=== PATIENT | female | born 1950 | race Caucasian/White ===

== ENCOUNTER 2016-09-09 13:49 | Inpatient (IN) | payer SELFPAY ==
[~2016-09-09] VITALS: Ht 160 cm; Wt 172.4 kg
[~2016-09-09 13:49] MED LIST: ALBUTEROL 3 ML 33 ML IH; AMITRIPTYLINE25 MG PO; BACTRIM DS 8001 TAB PO; CIPRO500 MG PO; CIPROFLOXACIN500 MG PO; COUMADIN3 M1 PO; DARVOCET N 1001 TAB PO; FLOMAX0.4 MG PO; GAVISCON ES TA1 EACH PO; GLYBURIDE5 MG PO; HYDROCODONE BIT1 T11 PO; LOVASTATIN20 MG PO; MACROBID100 M1 PO; MEDROL DOSEPAK4 MG PO; METOPROLOL50 MG PO; MOTRIN800 MG PO; MYSOLINE50 M1 PO; MYSOLINE50 M2 PO; Metformin Hydr500 MG PO; NEURONTIN300 MG PO; NOVOLIN N100 U/ML SC; PEPCID20 MG PO; PERCOCET 325 MG1 TA2 PO; PERCOCET 325 MG1 TA7 PO; PYRIDIUM100 MG PO; Phenergan25 MG PO; VIBRAMYCIN100 MG PO; VICODIN 5/500 505 MG PO; VITAMIN D50000 I2 PO; WARFARIN SODIUM6 MG PO; XANAX0.5 MG PO; ZANTAC150 MG PO; ZOFRAN4 MG PO; Zofran4 MG PO
[2016-09-09 14:22] LABS: INTERNATIONAL NORM RATIO 1.6 (2.0-3.5); PROTHROMBIN TIME 17.4 SECONDS (9.0-12.4)
[2016-09-09 14:30] VITALS: BP 174/107
[2016-09-09 14:31] LABS: ALBUMIN 3.5 gm/dl (3.1-4.5); ALKALINE PHOSPHATASE 62 U/L (45-117); BILIRUBIN, TOTAL 0.7 mg/dl (0.2-1.0); BUN 11 mg/dl (7-24); CARBON DIOXIDE 29 mmol/L (21-32); CHLORIDE 101 mmol/L (98-107); EST GLOM FILT AFRICAN AMERICAN > 60 ml/min; GLUCOSE 246 mg/dL (65-99); MAGNESIUM 1.3 mg/dL (1.5-2.1); POTASSIUM 4.3 mmol/L (3.5-5.1); SGOT/AST 18 IU/L (3-35); SGPT/ALT 18 U/L (12-78); SODIUM 138 mmol/L (136-145); TOTAL PROTEIN 7.6 gm/dL (6.4-8.2)
[2016-09-09 14:34] LABS: TROPONIN I < 0.015 ng/ml (<0.045)
[2016-09-09 14:46] LABS: BASO # 0.1 10*3/uL (0.0-0.1); BASO % 0.9 % (0.0-1.0); EOS # 0.3 10*3/uL (0.0-0.4); EOS % 4.6 % (1.0-4.0); HEMATOCRIT 39.3 % (37.0-47.0); HEMOGLOBIN 12.4 g/dl (12.0-16.0); LYMPH # 2.6 10*3/uL (1.3-4.4); MEAN CELL VOLUME 91.8 fl (81.0-99.0); MEAN CORPUSCULAR HGB CONC 31.6 g/dl (33.0-37.0); MEAN PLATELET VOLUME 10.6 fl (9.6-12.3); MONO # 0.4 10*3/uL (0.1-1.0); MONO % 5.3 % (3.0-9.0); NEUT # 3.7 10*3/uL (2.3-7.9); NEUT % 52.1 % (47.0-73.0); PLATELET COUNT AUTOMATED 151 10*3/uL (130-400); RED BLOOD COUNT 4.28 10*6/uL (4.10-5.10); RED CELL DISTRI WIDTH 13.5 % (0-14.5)
[2016-09-09 16:11] VITALS: BP 188/89
[2016-09-09 16:48] VITALS: BP 171/91
[2016-09-09 18:00] VITALS: BP 159/79
[2016-09-09] MEDS ORDERED: WARFARIN SODIUM3 MG PO (18:43)
[2016-09-09] MEDS ORDERED: WARFARIN SODIUM6 MG PO (18:44)
[2016-09-09] MEDS ORDERED: DOXYCYCLINE100 M3 PO (18:45)
[2016-09-09] MEDS ORDERED: LISINOPRIL5 MG PO (18:46)
[2016-09-09] MEDS ORDERED: ZANTAC 150150 MG PO (18:47)
[2016-09-09 20:00] VITALS: BP 139/78
[2016-09-10] VITALS: BP 156/82
[2016-09-10 06:30] LABS: BASO % 0.6 % (0.0-1.0); EOS # 0.2 10*3/uL (0.0-0.4); EOS % 3.5 % (1.0-4.0); HEMATOCRIT 40.1 % (37.0-47.0); HEMOGLOBIN 12.9 g/dl (12.0-16.0); LYMPH % 32.1 % (27.0-41.0); MEAN CELL VOLUME 92.2 fl (81.0-99.0); MEAN CORPUSCULAR HGB 29.7 pg (27.0-31.0); MEAN CORPUSCULAR HGB CONC 32.2 g/dl (33.0-37.0); MEAN PLATELET VOLUME 10.3 fl (9.6-12.3); MONO # 0.4 10*3/uL (0.1-1.0); MONO % 6.3 % (3.0-9.0); NEUT # 3.6 10*3/uL (2.3-7.9); NEUT % 57.2 % (47.0-73.0); PLATELET COUNT AUTOMATED 155 10*3/uL (130-400); RED BLOOD COUNT 4.35 10*6/uL (4.10-5.10); RED CELL DISTRI WIDTH 13.3 % (0-14.5); WHITE BLOOD COUNT 6.3 10*3/uL (4.8-10.8)
[2016-09-10 07:05] LABS: INTERNATIONAL NORM RATIO 1.7 (2.0-3.5); PROTHROMBIN TIME 19.2 SECONDS (9.0-12.4)
[2016-09-10 07:07] LABS: BUN 14 mg/dl (7-24); CARBON DIOXIDE 32 mmol/L (21-32); CHLORIDE 100 mmol/L (98-107); EST GLOM FILT AFRICAN AMERICAN > 60 ml/min; GLUCOSE 204 mg/dL (65-99); POTASSIUM 3.8 mmol/L (3.5-5.1); SODIUM 138 mmol/L (136-145)
[2016-09-10 08:00] VITALS: BP 153/64
== END 2016-09-10 10:35 | disposition left against medical advice (07) | DRG 313 ==
LOC: ED 13:49 → 5E 16:25 → EDHOLD 16:25 → 5E 16:26
PROVIDERS: Internal Medicine
DX: R07.89 Other chest pain (principal); I10 Essential (primary) hypertension; L03.032 Cellulitis of left toe; E11.9 Type 2 diabetes mellitus without complications; Z86.718 Personal history of other venous thrombosis and embolism; Z53.21 Procedure and treatment not carried out due to patient leaving prior to being seen by health care provider; Z87.442 Personal history of urinary calculi; Z82.49 Family history of ischemic heart disease and other diseases of the circulatory system; Z83.3 Family history of diabetes mellitus; Z88.2 Allergy status to sulfonamides; Z91.040 Latex allergy status; Z88.6 Allergy status to analgesic agent; Z88.8 Allergy status to other drugs, medicaments and biological substances; Z91.048 Other nonmedicinal substance allergy status; Z87.440 Personal history of urinary (tract) infections; Z79.4 Long term (current) use of insulin; Z79.01 Long term (current) use of anticoagulants; Z79.899 Other long term (current) drug therapy; Z90.710 Acquired absence of both cervix and uterus; Z90.49 Acquired absence of other specified parts of digestive tract

== ENCOUNTER 2019-09-24 13:47 | Emergency (ER) | payer MEDICARE ==
[~2019-09-24 13:47] MED LIST changes: +DOXYCYCLINE100 M3 PO; +LISINOPRIL5 MG PO; +LOSARTAN POTASS50 M1 PO; +SINEMET 10-1001 EACH PO; +WARFARIN SODIUM3 MG PO; +ZANTAC 150150 MG PO
[2019-09-24 13:54] VITALS: BP 133/59
[2019-09-24 14:29] LABS: BASO % 0.3 % (0.0-1.0); EOS # 0.2 10*3/uL (0.0-0.4); EOS % 3.7 % (1.0-4.0); HEMATOCRIT 36.7 % (37.0-47.0); LYMPH # 1.8 10*3/uL (1.3-4.4); LYMPH % 31.7 % (27.0-41.0); MEAN CELL VOLUME 91.1 fl (81.0-99.0); MEAN CORPUSCULAR HGB CONC 30.8 g/dl (33.0-37.0); MEAN PLATELET VOLUME 10.4 fl (9.6-12.3); MONO # 0.4 10*3/uL (0.1-1.0); MONO % 6.6 % (3.0-9.0); NEUT # 3.3 10*3/uL (2.3-7.9); NEUT % 57.5 % (47.0-73.0); PLATELET COUNT AUTOMATED 151 10*3/uL (130-400); RED BLOOD COUNT 4.03 10*6/uL (4.10-5.10); RED CELL DISTRI WIDTH 13.2 % (0-14.5); WHITE BLOOD COUNT 5.7 10*3/uL (4.8-10.8)
[2019-09-24 14:46] LABS: ALKALINE PHOSPHATASE 55 U/L (45-117); BUN 19 mg/dl (7-24); CHLORIDE 107 mmol/L (98-107); CREATININE 1.08 mg/dL (0.55-1.02); POTASSIUM 3.9 mmol/L (3.5-5.1); SGOT/AST 12 IU/L (3-35); SGPT/ALT 12 U/L (12-78); SODIUM 140 mmol/L (136-145); TOTAL PROTEIN 6.9 gm/dL (6.4-8.2)
[2019-09-24] MEDS ORDERED: CEPHALEXIN500 M1 PO (16:21)
== END 2019-09-24 16:31 | disposition home or self-care (01) ==
LOC: ED 13:47
PROVIDERS: Physician Assistant
DX: S96.911A Strain of unspecified muscle and tendon at ankle and foot level, right foot, initial encounter (principal); L30.9 Dermatitis, unspecified; I10 Essential (primary) hypertension; E11.9 Type 2 diabetes mellitus without complications; Z88.0 Allergy status to penicillin; Z88.2 Allergy status to sulfonamides; Z88.6 Allergy status to analgesic agent; Z91.040 Latex allergy status; Z79.899 Other long term (current) drug therapy; Z79.01 Long term (current) use of anticoagulants; Z79.4 Long term (current) use of insulin; W18.39XA Other fall on same level, initial encounter; Y93.89 Activity, other specified; Y92.89 Other specified places as the place of occurrence of the external cause; Y99.8 Other external cause status

== ENCOUNTER → 2020-05-10 | Outpatient (CLI) | payer MEDICARE ==
[~2020-05-10] MED LIST changes: +CEPHALEXIN500 M1 PO
[2020-05-10 16:11] LABS: BASO % 0.7 % (0.0-1.0); EOS # 0.2 10*3/uL (0.0-0.4); EOS % 2.8 % (1.0-4.0); HEMATOCRIT 36.2 % (37.0-47.0); LYMPH # 1.8 10*3/uL (1.3-4.4); LYMPH % 30.7 % (27.0-41.0); MEAN CELL VOLUME 92.1 fl (81.0-99.0); MEAN CORPUSCULAR HGB 28.5 pg (27.0-31.0); MEAN CORPUSCULAR HGB CONC 30.9 g/dl (33.0-37.0); MEAN PLATELET VOLUME 10.2 fl (9.6-12.3); MONO # 0.4 10*3/uL (0.1-1.0); MONO % 5.8 % (3.0-9.0); NEUT # 3.6 10*3/uL (2.3-7.9); NEUT % 59.8 % (47.0-73.0); PLATELET COUNT AUTOMATED 160 10*3/uL (130-400); RED BLOOD COUNT 3.93 10*6/uL (4.10-5.10); RED CELL DISTRI WIDTH 12.9 % (0-14.5)
[2020-05-10 16:42] LABS: ALBUMIN 3.1 gm/dl (3.1-4.5); CREATININE 1.18 mg/dL (0.55-1.02); FREE T4 0.89 ng/dl (0.76-1.46); POTASSIUM 4.5 mmol/L (3.5-5.1); TOTAL PROTEIN 6.9 gm/dL (6.4-8.2)
[2020-05-10 16:46] LABS: THYROID STIM HORMONE (HS) 2.8 uIU/ml (0.358-4.75)
== END | disposition home or self-care (01) ==
LOC: LAB 15:47
PROVIDERS: ATTEND Internal Medicine
DX: Z00.00 Encounter for general adult medical examination without abnormal findings (principal); I10 Essential (primary) hypertension; E55.9 Vitamin D deficiency, unspecified; E78.2 Mixed hyperlipidemia; E11.9 Type 2 diabetes mellitus without complications

== ENCOUNTER 2020-08-07 12:53 | Inpatient (IN) | payer MEDICARE ==
[2020-08-07] VITALS: BP 135/83
[~2020-08-07] VITALS: Ht 161.3 cm; Wt 171.5 kg
[2020-08-07 12:57] VITALS: BP 146/105
[2020-08-07 13:31] LABS: BASO % 0.6 % (0.0-1.0); EOS # 0.2 10*3/uL (0.0-0.4); EOS % 2.5 % (1.0-4.0); HEMATOCRIT 37.1 % (37.0-47.0); LYMPH % 29.2 % (27.0-41.0); MEAN CELL VOLUME 94.2 fl (81.0-99.0); MEAN CORPUSCULAR HGB 28.4 pg (27.0-31.0); MEAN CORPUSCULAR HGB CONC 30.2 g/dl (33.0-37.0); MEAN PLATELET VOLUME 10.7 fl (9.6-12.3); MONO # 0.4 10*3/uL (0.1-1.0); MONO % 6.3 % (3.0-9.0); NEUT # 4.1 10*3/uL (2.3-7.9); NEUT % 61.3 % (47.0-73.0); PLATELET COUNT AUTOMATED 175 10*3/uL (130-400); RED BLOOD COUNT 3.94 10*6/uL (4.10-5.10); RED CELL DISTRI WIDTH 14.2 % (0-14.5); WHITE BLOOD COUNT 6.7 10*3/uL (4.8-10.8)
[2020-08-07 13:43] LABS: ALBUMIN 3.2 gm/dl (3.1-4.5); ALKALINE PHOSPHATASE 64 U/L (45-117); BUN 26 mg/dl (7-24); CHLORIDE 107 mmol/L (98-107); CREATININE 1.28 mg/dL (0.55-1.02); LIPASE 75 U/L (73-393); POTASSIUM 4.5 mmol/L (3.5-5.1); SGOT/AST 12 IU/L (3-35); SGPT/ALT 15 U/L (12-78); SODIUM 140 mmol/L (136-145); TOTAL PROTEIN 7.2 gm/dL (6.4-8.2)
[2020-08-07 13:44] LABS: TROPONIN I < 0.015 ng/ml (<0.045)
[2020-08-07 13:55] LABS: ACT PARTIAL THROMBO TIME 29.3 SECONDS (20.0-32.1); INTERNATIONAL NORM RATIO 1.3 (2.0-3.5)
[2020-08-07 16:50] VITALS: BP 139/91
[2020-08-07 20:20] VITALS: BP 140/90
[2020-08-08 06:08] LABS: INTERNATIONAL NORM RATIO 1.4 (2.0-3.5)
[2020-08-08 12:00] VITALS: BP 151/93
[2020-08-08 16:00] VITALS: BP 147/115
[2020-08-08 20:00] VITALS: BP 147/110
[2020-08-09] VITALS: BP 136/71
[2020-08-09 09:07] LABS: BUN 20 mg/dl (7-24); CHLORIDE 104 mmol/L (98-107); CREATININE 0.99 mg/dL (0.55-1.02); POTASSIUM 3.7 mmol/L (3.5-5.1); SODIUM 139 mmol/L (136-145)
[2020-08-09 12:00] VITALS: BP 114/96
[2020-08-09 16:00] VITALS: BP 109/93
[2020-08-09 20:00] VITALS: BP 122/97
[2020-08-10] VITALS: BP 125/104; BP 128/90
[2020-08-10 08:00] VITALS: BP 105/56
== END 2020-08-10 10:50 | disposition home or self-care (01) | DRG 309 ==
LOC: ED 12:53 → 4E 16:43 → EDHOLD 16:43 → 4E 18:51
PROVIDERS: Emergency Medicine; Internal Medicine Cardiovascular Disease; ADMIT Internal Medicine; ATTEND Internal Medicine
PROC: 4A02XM4 Measurement of Cardiac Total Activity, External Approach (ICD-10-PCS; principal; 2020-08-09)
PROC: 3E073KZ Introduction of Other Diagnostic Substance into Coronary Artery, Percutaneous Approach (ICD-10-PCS; 2020-08-09)
DX: I48.21 Permanent atrial fibrillation (principal); J96.10 Chronic respiratory failure, unspecified whether with hypoxia or hypercapnia; Z68.44 Body mass index [BMI] 60.0-69.9, adult; G20 Parkinson's disease; I50.9 Heart failure, unspecified; E66.01 Morbid (severe) obesity due to excess calories; Z86.718 Personal history of other venous thrombosis and embolism; I11.0 Hypertensive heart disease with heart failure; M43.16 Spondylolisthesis, lumbar region; M48.061 Spinal stenosis, lumbar region without neurogenic claudication; F41.1 Generalized anxiety disorder; R62.7 Adult failure to thrive; R26.2 Difficulty in walking, not elsewhere classified; E11.9 Type 2 diabetes mellitus without complications; E78.2 Mixed hyperlipidemia; Z79.01 Long term (current) use of anticoagulants; Z86.711 Personal history of pulmonary embolism; Z88.0 Allergy status to penicillin; Z88.2 Allergy status to sulfonamides; Z91.041 Radiographic dye allergy status; Z91.040 Latex allergy status; Z88.8 Allergy status to other drugs, medicaments and biological substances; Z90.49 Acquired absence of other specified parts of digestive tract

== ENCOUNTER → 2020-08-07 | Outpatient (CLI) | payer MEDICARE | END | disposition home or self-care (01) | LOC: CT 11:00 | PROVIDERS: ATTEND Internal Medicine | DX: L92.9 Granulomatous disorder of the skin and subcutaneous tissue, unspecified (principal) ==

== ENCOUNTER → 2020-12-15 | Outpatient (CLI) | payer MEDICARE | LOC: WOUNDCARE 00:25 | PROVIDERS: ATTEND Nurse Practitioner Family | DX: E11.622 Type 2 diabetes mellitus with other skin ulcer (principal); L89.100 Pressure ulcer of unspecified part of back, unstageable; L98.422 Non-pressure chronic ulcer of back with fat layer exposed; L97.822 Non-pressure chronic ulcer of other part of left lower leg with fat layer exposed; L97.321 Non-pressure chronic ulcer of left ankle limited to breakdown of skin; E11.621 Type 2 diabetes mellitus with foot ulcer; L97.421 Non-pressure chronic ulcer of left heel and midfoot limited to breakdown of skin; Z90.710 Acquired absence of both cervix and uterus; Z98.890 Other specified postprocedural states; Z79.84 Long term (current) use of oral hypoglycemic drugs; Z79.01 Long term (current) use of anticoagulants; Z79.899 Other long term (current) drug therapy ==

== ENCOUNTER → 2020-12-21 | Outpatient (CLI) | payer MEDICARE | LOC: WOUNDCARE 00:31 | PROVIDERS: ATTEND Nurse Practitioner Family | DX: E11.622 Type 2 diabetes mellitus with other skin ulcer (principal); L89.100 Pressure ulcer of unspecified part of back, unstageable; L98.422 Non-pressure chronic ulcer of back with fat layer exposed; L97.822 Non-pressure chronic ulcer of other part of left lower leg with fat layer exposed; L97.321 Non-pressure chronic ulcer of left ankle limited to breakdown of skin; E11.621 Type 2 diabetes mellitus with foot ulcer; L97.421 Non-pressure chronic ulcer of left heel and midfoot limited to breakdown of skin; Z90.710 Acquired absence of both cervix and uterus; Z98.890 Other specified postprocedural states; Z79.84 Long term (current) use of oral hypoglycemic drugs; Z79.01 Long term (current) use of anticoagulants; Z79.899 Other long term (current) drug therapy ==

== ENCOUNTER → 2020-12-28 | Outpatient (CLI) | payer MEDICARE | LOC: WOUNDCARE 04:58 | PROVIDERS: ATTEND Nurse Practitioner Family | DX: E11.622 Type 2 diabetes mellitus with other skin ulcer (principal); L97.822 Non-pressure chronic ulcer of other part of left lower leg with fat layer exposed; L97.321 Non-pressure chronic ulcer of left ankle limited to breakdown of skin; E11.621 Type 2 diabetes mellitus with foot ulcer; L97.421 Non-pressure chronic ulcer of left heel and midfoot limited to breakdown of skin; Z90.710 Acquired absence of both cervix and uterus ==

== ENCOUNTER → 2021-06-18 | Outpatient (CLI) | payer MEDICARE ==
[2021-06-18 13:55] LABS: BASO # 0.1 10*3/uL (0.0-0.1); BASO % 0.6 % (0.0-1.0); EOS # 0.1 10*3/uL (0.0-0.4); EOS % 1.6 % (1.0-4.0); HEMATOCRIT 40.9 % (37.0-47.0); LYMPH # 1.8 10*3/uL (1.3-4.4); LYMPH % 21.4 % (27.0-41.0); MEAN CELL VOLUME 92.5 fl (81.0-99.0); MEAN CORPUSCULAR HGB 28.7 pg (27.0-31.0); MEAN CORPUSCULAR HGB CONC 31.1 g/dl (33.0-37.0); MEAN PLATELET VOLUME 10.5 fl (9.6-12.3); MONO # 0.4 10*3/uL (0.1-1.0); MONO % 5.1 % (3.0-9.0); NEUT # 5.9 10*3/uL (2.3-7.9); NEUT % 70.5 % (47.0-73.0); PLATELET COUNT AUTOMATED 150 10*3/uL (130-400); RED BLOOD COUNT 4.42 10*6/uL (4.10-5.10); RED CELL DISTRI WIDTH 13.2 % (0-14.5); WHITE BLOOD COUNT 8.3 10*3/uL (4.8-10.8)
[2021-06-18 14:11] LABS: CREATININE 1.21 mg/dL (0.55-1.02); POTASSIUM 4.8 mmol/L (3.5-5.1); THYROXINE (T4) TOTAL 7.5 ug/dl (4.8-13.9); TOTAL PROTEIN 7.2 gm/dL (6.4-8.2)
[2021-06-18 14:16] LABS: THYROID STIM HORMONE (HS) 2.09 uIU/ml (0.358-4.75)
[2021-06-18 16:06] LABS: VITAMIN D, 25-HYDROXY 13.1 ng/mL (30-100)
== END | disposition home or self-care (01) ==
LOC: LAB 13:29
PROVIDERS: ATTEND Internal Medicine
DX: I10 Essential (primary) hypertension (principal); E11.9 Type 2 diabetes mellitus without complications; E78.2 Mixed hyperlipidemia; E55.9 Vitamin D deficiency, unspecified

== ENCOUNTER 2021-11-24 10:19 | Inpatient (IN) | payer MEDICARE ==
[~2021-11-24] VITALS: Ht 161.2 cm; Wt 154.2 kg
[~2021-11-24 10:19] MED LIST changes: +CLINDAMYCIN HC300 MG PO; -HYDROCODONE BIT1 T11 PO; +HYDROCODONE-AC1 EAC2 PO; +LAGEVRIO PO; +PROBIOTIC250 MG PO
[2021-11-24 10:28] VITALS: BP 132/56
[2021-11-24 12:10] VITALS: BP 128/62
[2021-11-24 15:44] VITALS: BP 127/59
[2021-11-24 18:30] VITALS: BP 140/103
[2021-11-24] MEDS ORDERED: COLACE100 MG PO (18:36)
[2021-11-24] MEDS ORDERED: HUMALOG100 UNIT/1 SQ (18:56)
[2021-11-24] MEDS ORDERED: INSULIN LI100 UNIT/2 SQ (18:59)
[2021-11-24] MEDS ORDERED: LANTUS SOL100 UNIT/1 SC (19:00)
[2021-11-24] MEDS ORDERED: METOPROLOL SUC100 M1 PO (19:00)
[2021-11-24] MEDS ORDERED: COZAAR25 M1 PO (19:01)
[2021-11-24] MEDS ORDERED: KLOR-CON M2020 ME1 PO (19:02)
[2021-11-24] MEDS ORDERED: LASIX40 MG PO (19:02)
[2021-11-24] MEDS ORDERED: LACTULOSE10 GM/153 PO (19:04)
[2021-11-24] MEDS ORDERED: SENNA8.6 MG PO (19:05)
[2021-11-24] MEDS ORDERED: OMEPRAZOLE MAGN20 MG PO (19:05)
[2021-11-24] MEDS ORDERED: LEXAPRO10 MG PO (19:07)
[2021-11-24] MEDS ORDERED: MIRALAX POWDER17 G1 PO (19:08)
[2021-11-24] MEDS ORDERED: MOM30 M1 PO (19:08)
[2021-11-24] MEDS ORDERED: Ipratropium Brom3 ML INH (19:11)
[2021-11-24] MEDS ORDERED: ACETAMINOPHEN325 M2 PO (19:12)
[2021-11-24] MEDS ORDERED: GENTLE LAXATIVE10 MG R (19:12)
[2021-11-24] MEDS ORDERED: AMLACTIN 12% T (19:14)
[2021-11-24 20:00] VITALS: BP 128/88
[2021-11-25] VITALS: BP 128/73
[2021-11-25 06:05] LABS: BASO % 0.5 % (0.0-1.0); EOS # 0.3 10*3/uL (0.0-0.4); EOS % 4.9 % (1.0-4.0); HEMATOCRIT 37.5 % (37.0-47.0); LYMPH # 1.7 10*3/uL (1.3-4.4); LYMPH % 30.6 % (27.0-41.0); MEAN CORPUSCULAR HGB 29.6 pg (27.0-31.0); MEAN CORPUSCULAR HGB CONC 31.5 g/dl (33.0-37.0); MEAN PLATELET VOLUME 10.5 fl (9.6-12.3); MONO # 0.4 10*3/uL (0.1-1.0); MONO % 6.8 % (3.0-9.0); NEUT # 3.2 10*3/uL (2.3-7.9); PLATELET COUNT AUTOMATED 105 10*3/uL (130-400); RED BLOOD COUNT 3.99 10*6/uL (4.10-5.10); WHITE BLOOD COUNT 5.6 10*3/uL (4.8-10.8)
[2021-11-25 06:18] LABS: BUN 14 mg/dl (7-24); CHLORIDE 99 mmol/L (98-107); CREATININE 0.99 mg/dL (0.55-1.02); POTASSIUM 3.6 mmol/L (3.5-5.1); SODIUM 139 mmol/L (136-145)
[2021-11-25 08:00] VITALS: BP 133/51
[2021-11-25 12:00] VITALS: BP 101/54
[2021-11-25 16:00] VITALS: BP 108/77
[2021-11-25 20:00] VITALS: BP 155/72
[2021-11-26] VITALS: BP 104/65
[2021-11-26 08:00] VITALS: BP 126/70
[2021-11-26 12:00] VITALS: BP 108/64
[2021-11-26 16:00] VITALS: BP 111/74; BP 163/80
[2021-11-26 20:00] VITALS: BP 102/50; BP 138/68
[2021-11-27] VITALS: BP 97/47
[2021-11-27 08:00] VITALS: BP 117/70
[2021-11-27 12:00] VITALS: BP 125/45
[2021-11-27 16:00] VITALS: BP 141/70
[2021-11-27 20:00] VITALS: BP 128/70
[2021-11-28] VITALS: BP 108/47
[2021-11-28 05:30] LABS: ALKALINE PHOSPHATASE 67 U/L (45-117); BUN 17 mg/dl (7-24); CHLORIDE 99 mmol/L (98-107); CREATININE 1.03 mg/dL (0.55-1.02); POTASSIUM 3.5 mmol/L (3.5-5.1); SGOT/AST 12 IU/L (3-35); SGPT/ALT 6 U/L (12-78); SODIUM 139 mmol/L (136-145); TOTAL PROTEIN 6.5 gm/dL (6.4-8.2)
[2021-11-28 06:25] LABS: BASO % 0.6 % (0.0-1.0); EOS # 0.7 10*3/uL (0.0-0.4); EOS % 9.7 % (1.0-4.0); HEMATOCRIT 39.2 % (37.0-47.0); LYMPH # 1.6 10*3/uL (1.3-4.4); MEAN CELL VOLUME 96.1 fl (81.0-99.0); MEAN CORPUSCULAR HGB 28.9 pg (27.0-31.0); MEAN CORPUSCULAR HGB CONC 30.1 g/dl (33.0-37.0); MEAN PLATELET VOLUME 11.4 fl (9.6-12.3); MONO # 0.5 10*3/uL (0.1-1.0); MONO % 7.2 % (3.0-9.0); NEUT # 4.3 10*3/uL (2.3-7.9); NEUT % 60.1 % (47.0-73.0); PLATELET COUNT AUTOMATED 130 10*3/uL (130-400); RED BLOOD COUNT 4.08 10*6/uL (4.10-5.10); RED CELL DISTRI WIDTH 14.1 % (0-14.5); WHITE BLOOD COUNT 7.2 10*3/uL (4.8-10.8)
[2021-11-28 08:00] VITALS: BP 126/59
[2021-11-28] MEDS ORDERED: CEFDINIR300 MG PO (08:44)
[2021-11-28] MEDS ORDERED: LINEZOLID600 MG PO (08:44)
[2021-11-28] MEDS ORDERED: HYDROCODONE-AC1 EAC2 PO (08:44)
[2021-11-28 12:00] VITALS: BP 107/46
== END 2021-11-28 13:20 | disposition home health service (06) | DRG 604 ==
LOC: ED 10:19 → EDHOLD 15:36 → 4E 15:36
PROVIDERS: ADMIT Internal Medicine; ATTEND Internal Medicine
DX: S81.801A Unspecified open wound, right lower leg, initial encounter (principal); U07.1 COVID-19; J96.10 Chronic respiratory failure, unspecified whether with hypoxia or hypercapnia; E44.0 Moderate protein-calorie malnutrition; I48.21 Permanent atrial fibrillation; Z68.44 Body mass index [BMI] 60.0-69.9, adult; L89.892 Pressure ulcer of other site, stage 2; G89.4 Chronic pain syndrome; F41.1 Generalized anxiety disorder; R62.7 Adult failure to thrive; S70.11XA Contusion of right thigh, initial encounter; X58.XXXA Exposure to other specified factors, initial encounter; B95.2 Enterococcus as the cause of diseases classified elsewhere; B96.1 Klebsiella pneumoniae [K. pneumoniae] as the cause of diseases classified elsewhere; Z88.0 Allergy status to penicillin; Z88.2 Allergy status to sulfonamides; Z88.6 Allergy status to analgesic agent; Z91.041 Radiographic dye allergy status; Y93.89 Activity, other specified; Y92.89 Other specified places as the place of occurrence of the external cause; Y99.9 Unspecified external cause status; Z91.040 Latex allergy status; Z98.891 History of uterine scar from previous surgery; Z90.710 Acquired absence of both cervix and uterus; Z90.49 Acquired absence of other specified parts of digestive tract; Z86.718 Personal history of other venous thrombosis and embolism; Z86.711 Personal history of pulmonary embolism; I48.0 Paroxysmal atrial fibrillation